=== PATIENT | female | born 1995 | race Caucasian/White ===

== ENCOUNTER 2021-02-28 14:02 | Outpatient (CLI) | payer OTHER, SELFPAY | END 2021-02-28 14:03 | disposition home or self-care (01) | LOC: ANHCOVIDVC 14:02 | PROVIDERS: PCP Internal Medicine | DX: Z23 Encounter for immunization (principal) | CPT/HCPCS: 0001A; 91300 ==

== ENCOUNTER 2021-03-21 14:01 | Outpatient (CLI) | payer OTHER, SELFPAY | END 2021-03-21 14:02 | disposition home or self-care (01) | LOC: ANHCOVIDVC 14:01 | PROVIDERS: PCP Internal Medicine | DX: Z23 Encounter for immunization (principal) | CPT/HCPCS: 0002A; 91300 ==